=== PATIENT | male | born 1995 ===

== ENCOUNTER → 2019-04-01 | Outpatient (CLI) | payer OTHER ==
--- NOTE | 2019-04-01 13:08 | Diagnostic Imaging Report ---
INDICATION: Ankle pain. 3 views left ankle were obtained FINDINGS: There is an oblique fracture through the distal diaphysis of the tibia. This is seen best anteriorly on the lateral projection. This is essentially nondisplaced. There is no other fracture or dislocation. IMPRESSION: Nondisplaced fracture through the distal diaphysis of the anterior tibia. Dictated by: Dictated on workstation # [id number]
== END ==
LOC: RAD 11:24
PROVIDERS: ATTEND Internal Medicine
DX: S82.302A Unspecified fracture of lower end of left tibia, initial encounter for closed fracture (principal); X58.XXXA Exposure to other specified factors, initial encounter
CPT/HCPCS: 73610